=== PATIENT | male | born 1965 | race Caucasian/White ===

== ENCOUNTER 2018-10-20 07:54 | Day surgery (SDC) | payer BC, OTHER ==
[2018-10-17 14:58] VITALS: BMI 26.5
[2018-10-20 09:08] VITALS: TEMP 98.4
[2018-10-20 09:37] VITALS: BP 109/71; PULSE 67
--- NOTE | 2018-10-21 13:02 | PATH ---
Surgical Pathology Report Patient Name: GAGAN NIETO [facility]. Rec. #: [id number] /Age/Gender: 1965 (Age: 53) / M Account: [id number] Location: [facility]-ENDOSCOPY Taken: 10/20/2018 Received: 10/20/2018 Reported: 10/21/2018 Physicians: Domi Ocampo M.D. Specimen(s) Received A: BX RIGHT COLON POLYP B: BX DESCENDING COLON POLYP Clinical History Screening Postoperative diagnosis: Colon polyps Final Diagnosis A. RIGHT COLON POLYP, POLYPECTOMY: TUBULAR ADENOMA. B. DESCENDING COLON POLYP, POLYPECTOMY: TUBULAR ADENOMA. Electronically Signed Katelynn Jasso M.D. Gross Description A. Received in formalin, labeled "polyp right colon" are 3 lopez, irregular portions of soft tissue ranging from 0.2-0.5 cm. in greatest dimension. The specimens are submitted in toto in one cassette. B. Received in formalin, labeled "polyp descending colon" is a lopez, irregular portion of soft tissue measuring 0.4 cm. in greatest dimension. The specimen is submitted in toto in one cassette. /10/20/2018 saudi10/20/2018
== END 2018-10-20 10:03 | disposition home or self-care (01) ==
LOC: JASU-ENDO 07:54
PROVIDERS: ATTEND Internal Medicine Gastroenterology
PROC: 0DBM8ZX Excision of Descending Colon, Via Natural or Artificial Opening Endoscopic, Diagnostic (ICD-10-PCS; 2018-10-20)
PROC: 0DBK8ZX Excision of Ascending Colon, Via Natural or Artificial Opening Endoscopic, Diagnostic (ICD-10-PCS; principal; 2018-10-20 08:45)
DX: Z12.11 Encounter for screening for malignant neoplasm of colon (principal); D12.2 Benign neoplasm of ascending colon; D12.4 Benign neoplasm of descending colon; K64.8 Other hemorrhoids
CPT/HCPCS: 88305-TC